=== PATIENT | male | born 1945 | race Caucasian/White ===

== ENCOUNTER 2024-05-01 11:23 | Observation (INO) ==
[2024-05-01 12:34] LABS: BASOPHILS % (AUTO) 0.3 % (0.2-1.0); HEMATOCRIT 43.2 % (42.0-54.0); HEMOGLOBIN 14.9 g/dL (13.5-18.0); LYMPHOCYTES # (AUTO) 0.8 X10^3/uL (1.3-2.9); LYMPHOCYTES % (AUTO) 9.2 % (21.0-51.0); MEAN CORPUSCULAR HEMOGLOBIN 32.3 pg (27.0-34.0); MEAN CORPUSCULAR HGB CONC 34.4 g/dL (33.0-35.0); MEAN CORPUSCULAR VOLUME 93.9 fL (80.0-100.0); MEAN PLATELET VOLUME 8.8 fL (7.4-11.0); MONOCYTES # (AUTO) 0.4 x10^3/uL (0.3-0.8); MONOCYTES % (AUTO) 4.9 % (0.0-13.0); NEUTROPHILS # (AUTO) 7.7 x10^3/uL (2.2-4.8); NEUTROPHILS % (AUTO) 85.6 % (42.0-75.0); PLATELET COUNT 134 X10^3/uL (150.0-450.0); RED CELL DISTRIBUTION WIDTH 13.5 % (11.6-16.5)
[2024-05-01] MEDS: VALIUM INJ IVP ONE (12:35)
[2024-05-01] MEDS: NS 1,000 ML IV 1,000 ML IV ONE (12:36)
[2024-05-01 12:46] LABS: ALANINE AMINOTRANSFERASE 19 Units/L (12-78); ALBUMIN 3.2 g/dL (3.4-5.0); ALKALINE PHOSPHATASE 47 Units/L (46-116); ASPARTATE AMINO TRANSFERASE 22 Units/L (15-37); BLOOD UREA NITROGEN 29 mg/dL (7-18); CALCIUM 8.8 mg/dL (8.5-10.1); CARBON DIOXIDE 29.7 mmol/L (21-32); CHLORIDE 103 mmol/L (98-107); COR CA(FOR HYPOALB) 9.4 mg/dL (8.5-10.1); COR NA(FOR HYPERGLY) 141 mmol/L (136-145); CREATININE 1.08 mg/dL (0.70-1.30); GLUCOSE 131 mg/dL (65-99); LIPASE 22 Units/L (16-77); POTASSIUM 4.1 mmol/L (3.5-5.1); SODIUM 140 mmol/L (136-145); TOTAL PROTEIN 6.7 g/dL (6.4-8.2); eGFR NON BLACK RACES > 60 (>60)
--- NOTE | 2024-05-01 13:13 | EKG ---
Test Reason : dizziness, bradycardia Blood Pressure : */* mmHG Vent. Rate : 46 BPM Atrial Rate : 46 BPM P-R Int : 172 ms QRS Dur : 94 ms QT Int : 424 ms P-R-T Axes : 61 1 58 degrees QTc Int : 371 ms Sinus bradycardia Otherwise normal ECG No previous ECGs available Confirmed by Alejandro Britt MD ([id number]) on 05/01/2024 1:32:22 PM Referred By: Confirmed By: Alejandro Britt MD
--- NOTE | 2024-05-01 16:43 | DR.GENAD ---
HPI Time Seen Time Seen by Provider: 05/01/24 12:03 PCP Primary Care Physician: Jose Vidales Complaint/Symptoms Chief Complaint Doctors Comments: 78 yo M, hx of HTN, Hypothyroidism, hx mitral valve replacement, no other cardiac hx, c/o dizziness the past 2d. Pt seen here yest, diagnosed with vertigo, sent home with meclizine and phenergan, comes back to ER for symptoms worsening. c/o assoc vomiting at home. Denies other complaints. Chief Complaint:: Pt states that he was seen yesterday for same complaint of dizziness/vergtio and vomiting. Pts states that every time he takes the by mouth phenergan the patient vomits so it doesnt have time to work. Self Treatment fo Chief Complaint: phenergan with no relief COVID-19 Coronavirus risk:travel/contact w/high risk person: No Has patient experienced Coronavirus symptoms: No Source History Provided: Patient and Significant Other Mode of Arrival Mode of Arrival: Wheelchair Timing Onset of Chief Complaint: 04/30/24 PMH PMH Past Medical History: Yes Past Medical History: Dyslipidemia, Hypertension and Hypothyroidism Past Surgical History: Yes Surgical History: Cholecystectomy and Ortho Surgery Past Surgical History Comment: Mitral Valve Replacement Family History History of Family Medical Conditions: Yes Family Medical History: Cancer and Hypertension Social History Do you use any recreational Drugs:: No Travel Risk Coronavirus risk:travel/contact w/high risk person: No Has patient experienced Coronavirus symptoms: No Infectious screening In the last 2 months have you had wt loss of >10#?: NO Have you had fever, night sweats or hemotysis?: No Have you traveled outside the country in the last 6 months?: No Isolation: Standard ROS Review of Systems Gastrointestinal/Abdominal: Vomiting Neurological: Dizziness All Other Systems: Reviewed and Negative PE Vital Signs Vitals: Vital Signs Temperature 98.3 F Pulse Rate 44 Pulse Rate 67 Pulse Rate 45 Pulse Rate 45 Pulse Rate 45 Pulse Rate 49 Pulse Rate 46 Pulse Rate 49 Pulse Rate 44 Pulse Rate 46 Pulse Rate 47 Pulse Rate 44 Pulse Rate 44 Pulse Rate 44 Pulse Rate 46 Pulse Rate 45 Pulse Rate 80 Pulse Rate 85 Pulse Rate 75 Pulse Rate 85 Pulse Rate 49 Pulse Rate 63 Pulse Rate 62 Respiratory Rate 16 Respiratory Rate 35 Respiratory Rate 22 Respiratory Rate 22 Respiratory Rate 28 Respiratory Rate 13 Respiratory Rate 14 Respiratory Rate 29 Respiratory Rate 19 Respiratory Rate 17 Respiratory Rate 21 Respiratory Rate 15 Respiratory Rate 20 Respiratory Rate 10 Respiratory Rate 15 Respiratory Rate 18 Respiratory Rate 13 Respiratory Rate 12 Respiratory Rate 25 Respiratory Rate 11 Respiratory Rate 11 Respiratory Rate 11 Respiratory Rate 18 Blood Pressure 154/70 Blood Pressure 150/67 Blood Pressure 150/67 Blood Pressure 150/67 Blood Pressure 138/62 Blood Pressure 179/78 Blood Pressure 172/71 Blood Pressure 172/72 Blood Pressure 172/72 Blood Pressure 172/72 Blood Pressure 172/72 Blood Pressure 172/72 Blood Pressure 180/73 Blood Pressure 154/69 Blood Pressure 135/64 O2 Sat by Pulse Oximetry 100 O2 Sat by Pulse Oximetry 95 O2 Sat by Pulse Oximetry 99 O2 Sat by Pulse Oximetry 99 O2 Sat by Pulse Oximetry 99 O2 Sat by Pulse Oximetry 99 O2 Sat by Pulse Oximetry 100 O2 Sat by Pulse Oximetry 100 O2 Sat by Pulse Oximetry 99 O2 Sat by Pulse Oximetry 99 O2 Sat by Pulse Oximetry 98 O2 Sat by Pulse Oximetry 98 O2 Sat by Pulse Oximetry 98 O2 Sat by Pulse Oximetry 99 O2 Sat by Pulse Oximetry 99 O2 Sat by Pulse Oximetry 100 O2 Sat by Pulse Oximetry 100 O2 Sat by Pulse Oximetry 100 O2 Sat by Pulse Oximetry 99 O2 Sat by Pulse Oximetry 100 O2 Sat by Pulse Oximetry 98 O2 Sat by Pulse Oximetry 98 O2 Sat by Pulse Oximetry 96 General Limitations: No Limitations General Appearance: Alert and In No Apparent Distress Head Head Exam: Normal Inspection Eyes Eye exam: Normal Appearance ENT ENT Exam: Normal Exam External Ear Exam: Normal External Inspection TM/Canal Exam: Bilateral: Normal Nose Exam: Normal Nose Exam Mouth Exam: Normal Inspection Throat Exam: Normal Inspection Neck Neck Exam: Normal Inspection Chest Chest Inspection: Normal Inspection Respiratory Respiratory Exam: Normal Lung Sounds Bilat Respiratory Exam: Bilateral: Clear to Auscultation Cardiovascular Cardiovascular Exam: Regular Rate and Normal Rhythm Abdominal Exam Abdominal Exam: Normal Inspection, Normal Bowel Sounds and Soft Extremities Extremities Exam: Normal Inspection Back Back Exam: Normal Inspection Neurologic Neurological Exam: Alert and Oriented X3 Psychiatric Psychiatric Exam: Normal Affect and Normal Mood Skin Skin Exam: Warm, Dry, Intact and Normal Color ROR Labs Reviewed 05/01/24 12:25 05/01/24 12:25 Laboratory: WBC 9.0 X10^3/uL (3.6-10.0) 05/01/24 12:25 RBC 4.60 X10^6/uL (4.7-6.0) L 05/01/24 12:25 Hgb 14.9 g/dL (13.5-18.0) 05/01/24 12:25 Hct 43.2 % (42.0-54.0) 05/01/24 12: MCV 93.9 fL (80.0-100.0) 05/01/24 12: MCH 32.3 pg (27.0-34.0) 05/01/24 12: MCHC 34.4 g/dL (33.0-35.0) 05/01/24 12: RDW 13.5 % (11.6-16.5) 05/01/24: Plt Count 134 X10^3/uL (150.0-450.0) L 05/01/24: MPV 8.8 fL (7.4-11.0) 05/01/24: Neut % (Auto) 85.6 % (42.0-75.0) H 05/01/24: Lymph % (Auto) 9.2 % (21.0-51.0) L 05/01/24 12: [place] % (Auto) 4.9 % (0.0-13.0) 05/01/24: Eos % (Auto) 0.0 % (0.9-2.9) L 05/01/24: Baso % (Auto) 0.3 % (0.2-1.0) 05/01/24: Neut # (Auto) 7.7 x10^3/uL (2.2-4.8) H 05/01/24: Lymph # (Auto) 0.8 X10^3/uL (1.3-2.9) L 05/01/24: [place] # (Auto) 0.4 x10^3/uL (0.3-0.8) 05/01/24: Eos # (Auto) 0.0 x10^3/uL (0.0-0.2) 05/01/24 12: Baso # (Auto) 0.0 X10^3/uL (0.0-0.1) 05/01/24 12: Absolute Nucleated RBC 0.0 /100WBC 05/01/24 12:25 Sodium 140 mmol/L (136-145) 05/01/24 12:25 Corrected Sodium 141 mmol/L (136-145) 05/01/24 12:25 Potassium 4.1 mmol/L (3.5-5.1) 05/01/24 12:25 Chloride 103 mmol/L (98-107) 05/01/24 12:25 Carbon Dioxide 29.7 mmol/L (21-32) 05/01/24 12:25 BUN 29 mg/dL (7-18) H 05/01/24 12:25 Creatinine 1.08 mg/dL (0.70-1.30) 05/01/24 12:25 Est GFR (MDRD) Af Amer > 60 (>60) 05/01/24 12:25 Est GFR (MDRD) Non-Af > 60 (>60) 05/01/24 12:25 Glucose 131 mg/dL (65-99) H 05/01/24 12:25 Calcium 8.8 mg/dL (8.5-10.1) 05/01/24 12:25 Corrected Calcium 9.4 mg/dL (8.5-10.1) 05/01/24 12:25 Total Bilirubin 0.50 mg/dL (0.2-1.0) 05/01/24 12:25 AST 22 Units/L (15-37) 05/01/24 12:25 ALT 19 Units/L (12-78) 05/01/24 12:25 Alkaline Phosphatase 47 Units/L (46-116) 05/01/24 12:25 Troponin I High Sens 9.7 ng/L (4.0-60.0) 05/01/24 12:25 Total Protein 6.7 g/dL (6.4-8.2) 05/01/24 12:25 Albumin 3.2 g/dL (3.4-5.0) L 05/01/24 12:25 Globulin 3.5 g/dL (2.5-4.5) 05/01/24 12:25 Albumin/Globulin Ratio 0.9 Ratio (1.1-2.1) L 05/01/24 12:25 Lipase 22 Units/L (16-77) 05/01/24 12:25 Opioid Opioid Risk Tool Age (Joshua box if 16-45): No History of Preadolescent Sexual Abuse: No Total: 0 Total Score Risk Category: Low Risk Copyright: Bentley ADAME predicting aberrant behaviors Discharge Plan Diagnosis Discharge Problem: Dizziness, Bradycardia Discharge Plan Patient Disposition: 09 ADMITTED INPATIENT Condition: Stable Prescriptions: No Action aspirin 81 MG tablet,delayed release (DR/EC) 81 mg PO DAILY losartan 50 mg tablet 50 mg PO BID tamsulosin 0.4 mg capsule 0.4 mg PO QPM levothyroxine 50 mcg tablet 50 mcg PO QAM finasteride 5 mg tablet 5 mg PO QPM rosuvastatin 10 mg tablet 10 mg PO QPM promethazine 25 mg tablet 25 mg PO Q6H PRNQty: 30 0RF triamcinolone acetonide 0.1 % cream 1 applic TOPICAL BID PRN Health Concerns: Post Hospitalization: new medications and changes needed to prevent readmission or further decline. Pt educated and given instructions on all concerns. Plan of Treatment: Continue with present treatment and follow up plan. Pt is to keep follow up appointment as instructed and take medications as ordered. Orders to Discharge Patient Discharge Orders: Transfer (Routine); Ordered 05/01/24 Ordered By: Earl Umana Follow ups/Referrals Follow ups/Referrals: Jose Vidales [Primary Care Provider] - 3 days Instructions Stand Alone Forms: Find Help Web Site, Post Hospital Follow Up Care ADDITIONAL NOTES Additional Notes Additional Notes: Pt admitted to Dr Saldivar at 1640PM
[2024-05-01 18:07] VITALS: BMI 22.8
[2024-05-01] MEDS ORDERED: MILK OF MAGNESIA PO PRN (18:22)
--- NOTE | 2024-05-01 18:23 | EKG ---
Test Reason : Bradycardia Blood Pressure : */* mmHG Vent. Rate : 67 BPM Atrial Rate : 67 BPM P-R Int : 188 ms QRS Dur : 80 ms QT Int : 432 ms P-R-T Axes : 58 15 55 degrees QTc Int : 456 ms Sinus rhythm with blocked premature atrial complexes with occasional premature ventricular complexes Cannot rule out Anterior infarct , age undetermined Abnormal ECG When compared with ECG of 01-MAY-2024 13:02, premature ventricular complexes are now present premature atrial complexes are now present QT has lengthened Confirmed by Alejandro Britt MD ([id number]) on 05/02/2024 7:41:27 AM Referred By: Confirmed By: Alejandro Britt MD
[2024-05-01 18:30] LABS: CREATINE KINASE < 7 Units/L (39-308)
[2024-05-01] MEDS: NS 1,000 ML IV 1,000 ML IV SCH (18:44)
[2024-05-01] MEDS ORDERED: ZOFRAN INJ 4 MG VIAL IVP PRN (18:44)
[2024-05-01] MEDS: COLACE CAP 100 MG PO SCH (20:36)
--- NOTE | 2024-05-01 23:51 | EKG ---
Test Reason : Bradycardia Blood Pressure : */* mmHG Vent. Rate : 44 BPM Atrial Rate : 44 BPM P-R Int : 174 ms QRS Dur : 84 ms QT Int : 410 ms P-R-T Axes : 67 19 56 degrees QTc Int : 350 ms Marked sinus bradycardia Possible Anterior infarct (cited on or before 01-MAY-2024) Abnormal ECG When compared with ECG of 01-MAY-2024 18:02, (Unconfirmed) premature ventricular complexes are no longer present premature atrial complexes are no longer present Vent. rate has decreased BY 23 BPM QT has shortened Confirmed by Alejandro Britt MD ([id number]) on 05/02/2024 7:41:14 AM Referred By: Confirmed By: Alejandro Britt MD
[2024-05-02 05:14] LABS: BASOPHILS % (AUTO) 0.3 % (0.2-1.0); EOSINOPHILS % (AUTO) 0.1 % (0.9-2.9); HEMOGLOBIN 14.7 g/dL (13.5-18.0); LYMPHOCYTES # (AUTO) 1.3 X10^3/uL (1.3-2.9); LYMPHOCYTES % (AUTO) 14.2 % (21.0-51.0); MEAN CORPUSCULAR HEMOGLOBIN 32.3 pg (27.0-34.0); MEAN CORPUSCULAR HGB CONC 34.2 g/dL (33.0-35.0); MEAN CORPUSCULAR VOLUME 94.4 fL (80.0-100.0); MEAN PLATELET VOLUME 9.1 fL (7.4-11.0); MONOCYTES # (AUTO) 0.8 x10^3/uL (0.3-0.8); MONOCYTES % (AUTO) 8.3 % (0.0-13.0); NEUTROPHILS # (AUTO) 7.2 x10^3/uL (2.2-4.8); NEUTROPHILS % (AUTO) 77.1 % (42.0-75.0); PLATELET COUNT 119 X10^3/uL (150.0-450.0); RED BLOOD COUNT 4.55 X10^6/uL (4.7-6.0); RED CELL DISTRIBUTION WIDTH 13.6 % (11.6-16.5); WHITE BLOOD COUNT 9.3 X10^3/uL (3.6-10.0)
[2024-05-02 05:27] LABS: INR 1.18 (0.8-1.3)
[2024-05-02 05:35] LABS: ALANINE AMINOTRANSFERASE 21 Units/L (12-78); ALBUMIN 2.9 g/dL (3.4-5.0); ALKALINE PHOSPHATASE 42 Units/L (46-116); ASPARTATE AMINO TRANSFERASE 25 Units/L (15-37); BLOOD UREA NITROGEN 24 mg/dL (7-18); CALCIUM 8.7 mg/dL (8.5-10.1); CARBON DIOXIDE 30.2 mmol/L (21-32); CHLORIDE 106 mmol/L (98-107); CHOL/HDL RATIO 2.5 (0.0-5.0); CHOLESTEROL 119 mg/dL (0-200); COR CA(FOR HYPOALB) 9.6 mg/dL (8.5-10.1); CREATININE 1.11 mg/dL (0.70-1.30); GLUCOSE 99 mg/dL (65-99); HDL CHOLESTEROL 48 mg/dL (40-60); MAGNESIUM 1.8 mg/dL (2.0-2.9); POTASSIUM 4.1 mmol/L (3.5-5.1); SODIUM 140 mmol/L (136-145); TOTAL PROTEIN 6.2 g/dL (6.4-8.2); TRIGLYCERIDES 97 mg/dL (0-150); eGFR NON BLACK RACES > 60 (>60)
[2024-05-02] MEDS ORDERED: CONSULT PHARMACY - POTASSIUM & MAGNESIUM XX SCH (06:00)
--- NOTE | 2024-05-02 06:26 | EKG ---
Test Reason : Bradycardia Blood Pressure : */* mmHG Vent. Rate : 54 BPM Atrial Rate : 54 BPM P-R Int : 180 ms QRS Dur : 82 ms QT Int : 434 ms P-R-T Axes : 59 7 51 degrees QTc Int : 411 ms Sinus bradycardia with occasional premature ventricular complexes Possible Anterior infarct (cited on or before 01-MAY-2024) Abnormal ECG When compared with ECG of 01-MAY-2024 23:33, (Unconfirmed) premature ventricular complexes are now present QT has lengthened Confirmed by Alejandro Britt MD ([id number]) on 05/02/2024 7:39:36 AM Referred By: Confirmed By: Alejandro Britt MD
[2024-05-02] MEDS: D5W 250 ML IV 250 ML IV ONE (07:17)
[2024-05-02] MEDS: MAG-OX TAB PO SCH (08:58)
--- NOTE | 2024-05-02 08:58 | DR.CONSULT ---
CONSULT Consultation for Day of: Date: 05/02/24 Chief Complaint Chief Complaint: dizzy/N/V Allergies Allergies Allergy/AdvReac Type Severity Reaction Status Date / Time meloxicam Allergy Verified 04/30/24 12:26 History of Present Illness History of Present Illness: 78 yo male- mild cad by cath last year- s/p MVR 2010-[facility] out of [place]- developed dizziness/n/v last week- saw Javi- given meclizine for vertigo-thursday : no better came to Er, CT negative- felt still vertigo- thursday: no better/admitted- symptoma are slowly improving- states dizzy/world spinning also peripheral vision gone- cardio consulted for bradycardia I suspect around times of n/v and suspect vagal mediated- hr now 70s Past Medical History Past Medical History: Dyslipidemia, Hypertension and Hypothyroidism Past Surgical History Surgical History: CABG/Valve Surgery, Cholecystectomy and Tonsillectomy Family History Family Medical History: IN and Hypertension Social History Type of Tobacco Use: None Alcohol Use: None Drug Use: None Medications Home Medications: meloxicam Allergy (Verified 04/30/24 12:26) CONTINUE taking the following medications triamcinolone acetonide 0.1 % topical cream 1 applic topical BID PRN 05/01/24 [History] Physical Exam Vital Signs: Vital Signs Temperature 97.9 F Temperature 97.7 F Temperature 97.7 F Pulse Rate [Right Radial] 53 Pulse Rate [Right Radial] 54 Pulse Rate [Right Radial] 54 Respiratory Rate 20 Respiratory Rate 20 Respiratory Rate 20 Blood Pressure [Left Arm] 149/70 Blood Pressure [Left Arm] 162/69 Blood Pressure [Left Arm] 162/69 O2 Sat by Pulse Oximetry 96 O2 Sat by Pulse Oximetry 97 O2 Sat by Pulse Oximetry 97 alert ox3 voice difficulties at time but states dates back after heart surgery- no bruits clear lungs rrr no edema- eyes dont move left/right- ok up and down- states peripheral vision gone CT: small vessel disease labs all ok Plan (1) Nausea & vomiting: Status: Acute Narrative Support Text: suspect related to dizziness (2) Dizziness: Status: Acute Narrative Support Text: suspect stroke to occiptal area affecting eye/peripheral vision causing dizziness Plan: MRI/neuro eval (3) Bradycardia: Status: Acute Narrative Support Text: suspect vagal mediated from n/v/d Plan: cont tele
--- NOTE | 2024-05-02 11:03 | DR.H&P ---
H&P History & Physical for Day of: H&P Date: 05/02/24 Chief Complaint Chief Complaint: dizziness, N/V History of Present Illness History of Present Illness: Mr Fair is a 78y/o male with a PMH of mitral valve replacement, HTN, HLD, Hypothyroidism, RLS and old CVA? presented with dizziness, N/V. His symptoms started Thu and he was seen at his cardiology appointment, was told it was vertigo and given meclizine. He was seen at his PCP the next day and was also told his symptoms are suggestive of vertigo and was given a steroid shot. He continued to have worsening dizziness when standing, unsteady gait and vision changes. He also had continued N/V. He was seen in the ER on Thu, labs and work up done. CT-brain was negative. He was given Phenergan IM and told to continue taking meclizine. His symptoms worsened and he was brought to the ER on Thursday. He was noted to have bradycardia HR in the 40s. He was started on hydration and cardio was consulted. His baseline HR is between 50-60. He reports feeling slightly better. His symptoms are worse when he stands up. He has not had any vomiting overnight. Dr Britt did see the patient and recommended further neuro work up to r/u stroke. Patient has normal motor strength in both upper and lower extremities. He does report blurry vision and worsening peripheral vision. He is not able to track objects side to side. He does have a hx of slurred speech which seems to be slightly worse as per his . Denies any trouble with swallowing. Labs/imaging reviewed: -WBC 9.3 Hgb 14.7 Plt 119 K 4.1 BUN/Cr 01/04.11 Mag 1.8 -CT-brain (04/30/24): no acute changes Plan: Continue telemetry, neuro checks. Will order MRI-brain and MRA neck to assess further and r/u any CVA. Fall precautions. Resume home medications. Replace electrolytes as per protocol. Continue gentle hydration. Anti-emetics prn. Appreciate cardio recommendations, monitor HR. Monitor AM labs/imaging. Time spent for clinical assessment, reviewing labs/imaging, physical exam, decision making and documentation greater than 45 mins. Past Medical History Past Medical History: Dyslipidemia, Hypertension and Hypothyroidism Past Surgical History Surgical History: CABG/Valve Surgery, Cholecystectomy and Tonsillectomy Family History Family Medical History: [place] and Hypertension Social History Type of Tobacco Use: None Alcohol Use: None Drug Use: None Medications Home Medications: Home Medications Medication Instructions Recorded Confirmed Type aspirin 81 mg tablet,delayed 81 mg PO DAILY 03/17/14 05/01/24 History release finasteride 5 mg tablet 5 mg PO QPM 04/30/24 05/01/24 History levothyroxine 50 mcg tablet 50 mcg PO QAM 04/30/24 05/01/24 History losartan 50 mg tablet 50 mg PO BID 04/30/24 05/01/24 History rosuvastatin 10 mg tablet 10 mg PO QPM 04/30/24 05/01/24 History tamsulosin 0.4 mg capsule 0.4 mg PO QPM 04/30/24 05/01/24 History triamcinolone acetonide 0.1 % 1 applic topical BID PRN 05/01/24 05/01/24 History topical cream Allergies Allergies Allergy/AdvReac Type Severity Reaction Status Date / Time meloxicam Allergy Verified 04/30/24 12:26 Labs 05/02/24 04:48 05/02/24 04:48 Labs: Laboratory WBC 9.3 X10^3/uL (3.6-10.0) 05/02/24 04:48 RBC 4.55 X10^6/uL (4.7-6.0) L 05/02/24 04:48 Hgb 14.7 g/dL (13.5-18.0) 05/02/24 04:48 Hct 43.0 % (42.0-54.0) 05/02/24 04:48 MCV 94.4 fL (80.0-100.0) 05/02/24 04:48 MCH 32.3 pg (27.0-34.0) 05/02/24 04:48 MCHC 34.2 g/dL (33.0-35.0) 05/02/24 04:48 RDW 13.6 % (11.6-16.5) 05/02/24 04:48 Plt Count 119 X10^3/uL (150.0-450.0) L 05/02/24 04:48 MPV 9.1 fL (7.4-11.0) 05/02/24 04:48 Neut % (Auto) 77.1 % (42.0-75.0) H 05/02/24 04:48 Lymph % (Auto) 14.2 % (21.0-51.0) L 05/02/24 04:48 [place] % (Auto) 8.3 % (0.0-13.0) 05/02/24 04:48 Eos % (Auto) 0.1 % (0.9-2.9) L 05/02/24 04:48 Baso % (Auto) 0.3 % (0.2-1.0) 05/02/24 04:48 Neut # (Auto) 7.2 x10^3/uL (2.2-4.8) H 05/02/24 04:48 Lymph # (Auto) 1.3 X10^3/uL (1.3-2.9) 05/02/24 04:48 [place] # (Auto) 0.8 x10^3/uL (0.3-0.8) 05/02/24 04:48 Eos # (Auto) 0.0 x10^3/uL (0.0-0.2) 05/02/24 04:48 Baso # (Auto) 0.0 X10^3/uL (0.0-0.1) 05/02/24 04:48 Absolute Nucleated RBC 0.0 /100WBC 05/02/24 04:48 PT 14.7 SECONDS (11.8-14.3) 05/02/24 04:48 INR Target Range - 05/02/24 04:48 INR 1.18 (0.8-1.3) 05/02/24 04:48 APTT 30.2 SECONDS (22.9-36.5) 05/02/24 04:48 PTT Comment - 05/02/24 04:48 Sodium 140 mmol/L (136-145) 05/02/24 04:48 Corrected Sodium TNP 05/02/24 04:48 Potassium 4.1 mmol/L (3.5-5.1) 05/02/24 04:48 Chloride 106 mmol/L (98-107) 05/02/24 04:48 Carbon Dioxide 30.2 mmol/L (21-32) 05/02/24 04:48 BUN 24 mg/dL (7-18) H 05/02/24 04:48 Creatinine 1.11 mg/dL (0.70-1.30) 05/02/24 04:48 Est GFR (MDRD) Af Amer > 60 (>60) 05/02/24 04:48 Est GFR (MDRD) Non-Af > 60 (>60) 05/02/24 04:48 Glucose 99 mg/dL (65-99) 05/02/24 04:48 Calcium 8.7 mg/dL (8.5-10.1) 05/02/24 04:48 Corrected Calcium 9.6 mg/dL (8.5-10.1) 05/02/24 04:48 Magnesium 1.8 mg/dL (2.0-2.9) L 05/02/24 04:48 Total Bilirubin 0.70 mg/dL (0.2-1.0) 05/02/24 04:48 AST 25 Units/L (15-37) 05/02/24 04:48 ALT 21 Units/L (12-78) 05/02/24 04:48 Alkaline Phosphatase 42 Units/L (46-116) L 05/02/24 04:48 Creatine Kinase < 7 Units/L (39-308) L 05/01/24 18:05 Troponin I High Sens 10.3 ng/L (4.0-60.0) 05/02/24 04:48 Troponin I High Sens Cancelled 05/02/24 04:48 Total Protein 6.2 g/dL (6.4-8.2) L 05/02/24 04:48 Albumin 2.9 g/dL (3.4-5.0) L 05/02/24 04:48 Globulin 3.3 g/dL (2.5-4.5) 05/02/24 04:48 Albumin/Globulin Ratio 0.9 Ratio (1.1-2.1) L 05/02/24 04:48 Triglycerides 97 mg/dL (0-150) 05/02/24 04:48 Cholesterol 119 mg/dL (0-200) 05/02/24 04:48 LDL Cholesterol, Calc 52 mg/dL (0-100) 05/02/24 04:48 HDL Cholesterol 48 mg/dL (40-60) 05/02/24 04:48 Cholesterol/HDL Ratio 2.5 (0.0-5.0) 05/02/24 04:48 Lipase 22 Units/L (16-77) 05/01/24 12:25 TSH 3rd Generation 2.221 uIU/mL (0.358-3.74) 05/02/24 04:48 Review of Systems Constitutional: Weakness Eyes: Vision Change ENT: No Symptoms Reported Respiratory: No Symptoms Reported Cardiovascular: No Symptoms Reported Gastrointestinal: Nausea and Vomiting Genitourinary: No Symptoms Reported Musculoskeletal: No Symptoms Reported Skin: No Symptoms Reported Neurological: Incoordination and Other (dizziness) Physical Exam Vital Signs: Vital Signs Temperature 97.9 F Temperature 97.7 F Temperature 97.7 F Pulse Rate [Right Radial] 53 Pulse Rate [Right Radial] 54 Pulse Rate [Right Radial] 54 Respiratory Rate 20 Respiratory Rate 20 Respiratory Rate 20 Blood Pressure [Left Arm] 149/70 Blood Pressure [Left Arm] 162/69 Blood Pressure [Left Arm] 162/69 O2 Sat by Pulse Oximetry 96 O2 Sat by Pulse Oximetry 97 O2 Sat by Pulse Oximetry 97 Oriented: Normal Eyes: Blurred Vision and Other (not able to track objects ) Respiratory: Clear Throughout Cardiovascular: Normal Auscultation: Bowel Sounds: Normal Palpation: Normal Tenderness: Normal Skin: Normal Musculoskeletal: Normal Psychiatric: Normal Mood Description: Calm Affect: Normal Speech Pattern: Clear and Appropriate Assessment/Plan (1) Nausea & vomiting: Qualifiers: Vomiting type: unspecified Qualified Code(s): R11.2 - Nausea with vomiting, unspecified Status: Acute (2) Dizziness: Status: Acute (3) Bradycardia: Status: Acute (4) Vision changes: Status: Acute (5) HTN (hypertension): Qualifiers: Hypertension type: primary hypertension Qualified Code(s): I10 - Essential (primary) hypertension Status: Chronic (6) HLD (hyperlipidemia): Qualifiers: Hyperlipidemia type: mixed hyperlipidemia Qualified Code(s): E78.2 - Mixed hyperlipidemia Status: Chronic (7) Mitral valve disorder: Status: Chronic Review H&P Reviewed: Yes Patient was examined?: Yes
[2024-05-02] MEDS: ASPIRIN EC 81 MG PO SCH (11:05)
[2024-05-02] MEDS: NS 1,000 ML IV 1,000 ML with MAGNESIUM SULFATE 50% INJ VIAL 1 G IV SCH (11:06)
[2024-05-02] MEDS: COZAAR PO SCH (11:06)
[2024-05-02] MEDS: SYNTHROID 50 mcg TAB PO SCH (11:06)
[2024-05-02] MEDS ORDERED: LOVENOX INJ 40 MG SYR SC SCH (13:00)
[2024-05-02] MEDS: FLOMAX PO SCH (20:25)
[2024-05-02] MEDS: CRESTOR TAB 10 MG PO SCH (20:25)
[2024-05-02] MEDS: PROSCAR PO SCH (20:25)
--- NOTE | 2024-05-02 21:39 | MRI ---
EXAM:BRAIN W/O CONHISTORY:unsteady gait, dizziness;COMPARISON:04/30/2024.TECHNIQUE: r sequences and imaging planes.FINDINGS:There is no restricted diffusion to suggest acute ischemia or infarction. There is prominence of the ventricles and sulci. There is T2 hyperintensity in the periventricular and subcortical white matter compatible with mild small vessel ischemic disease. There is no intracranial hemorrhage. There is mass proved is no mass effect or midline shift. There are flow voids in appropriate locations. There is no extra-axial mass or hemorrhage. Mastoid air cells and middle ear cavities are clear. There is mucosal thickening in the right maxillary sinus. The paranasal sinuses are otherwise clear. The orbits are remarkable.IMPRESSION:1. Negative for ischemia or infarct..2. Mild atrophy and small vessel ischemic disease.THIS IS AN ELECTRONICALLY VERIFIED FINAL REPORT05/02/2024 9:35 PM - Electronically signed by Jet Angel MD
[2024-05-03 06:14] LABS: BASOPHILS % (AUTO) 0.3 % (0.2-1.0); EOSINOPHILS # (AUTO) 0.1 x10^3/uL (0.0-0.2); EOSINOPHILS % (AUTO) 1.3 % (0.9-2.9); HEMATOCRIT 41.6 % (42.0-54.0); HEMOGLOBIN 14.1 g/dL (13.5-18.0); LYMPHOCYTES # (AUTO) 1.3 X10^3/uL (1.3-2.9); MEAN CORPUSCULAR HEMOGLOBIN 32.2 pg (27.0-34.0); MEAN CORPUSCULAR HGB CONC 33.8 g/dL (33.0-35.0); MEAN CORPUSCULAR VOLUME 95.1 fL (80.0-100.0); MEAN PLATELET VOLUME 9.1 fL (7.4-11.0); MONOCYTES # (AUTO) 0.7 x10^3/uL (0.3-0.8); MONOCYTES % (AUTO) 9.7 % (0.0-13.0); NEUTROPHILS % (AUTO) 70.7 % (42.0-75.0); PLATELET COUNT 126 X10^3/uL (150.0-450.0); RED BLOOD COUNT 4.37 X10^6/uL (4.7-6.0); RED CELL DISTRIBUTION WIDTH 13.3 % (11.6-16.5); WHITE BLOOD COUNT 7.1 X10^3/uL (3.6-10.0)
[2024-05-03 06:35] LABS: ALANINE AMINOTRANSFERASE 22 Units/L (12-78); ALBUMIN 2.6 g/dL (3.4-5.0); ALKALINE PHOSPHATASE 41 Units/L (46-116); ASPARTATE AMINO TRANSFERASE 26 Units/L (15-37); BLOOD UREA NITROGEN 20 mg/dL (7-18); CARBON DIOXIDE 26.9 mmol/L (21-32); CHLORIDE 108 mmol/L (98-107); COR CA(FOR HYPOALB) 9.1 mg/dL (8.5-10.1); CREATININE 0.98 mg/dL (0.70-1.30); GLUCOSE 106 mg/dL (65-99); MAGNESIUM 2.1 mg/dL (2.0-2.9); SODIUM 140 mmol/L (136-145); TOTAL PROTEIN 5.7 g/dL (6.4-8.2); eGFR NON BLACK RACES > 60 (>60)
--- NOTE | 2024-05-03 08:29 | NOTE.SOAP ---
Soap Note Note for Day of Date of Exam: 05/03/24 Subjective Data Subjective Data: symptoms minimally improved. Objective Data Objective Data: p 50-60- no sign bradycardia mri/head ct: no acute still cant move eye left to right but ok up/down- peripheral vision poor Assessment Assessment: dizziness with abnormal eye movement/altered peripheral vision- no stroke per mri/ct Plan Plan: neuro/optho help?
--- NOTE | 2024-05-03 09:10 | MRI ---
EXAM: MRA NECK WITHOUT CONTRAST HISTORY: carotid stenosis, dizziness; . COMPARISON: MRI brain 05/02/2024, 04/30/2024. TECHNIQUE: Axial [id number] magnetic resonance angiography of the neck vasculature was performed without int ravenous contrast. 3-D multiplanar reformatted maximum intensity projections were post processed. FINDINGS: Please note the aortic arch is not included in the field of view on this examination. There is prese rved flow related enhancement of the common carotid arteries, internal/external carotid arteries, and vertebral arteries bilaterally. There is moderate plaque in the right carotid bifurcation with fabiana mated 50% stenosis of the right ICA origin. There is mild plaque in the left carotid bifurcation, wi th less than 10% estimated ICA stenosis. The vertebral arteries are codominant, patent, and unremark able. On the source data set, there is abnormal signal in the brainstem, just anterior to the 4th ventricle near the obex. A small hemorrhage at this location is not excluded. IMPRESSION: 1. Included portions of the brain demonstrate a 7 mm signal abnormality in the brainstem, just anteri or to the 4th ventricle, which could represent a small hemorrhage. Its location at the obex could ex plain the patient's symptoms of nausea/vomiting. Consider follow-up MRI brain with and without contr ast with high-resolution thin section imaging through the 4th ventricle for additional characterizati on. 2. MRA of the neck demonstrates moderate plaque in the right carotid bifurcation with estimated 50% s tenosis of the right ICA origin. 3. Mild plaque in the left carotid bifurcation with less than 10% estimated left ICA stenosis. 4. Patent vertebral arteries with normal direction of flow. 5. Please note the aortic arch is not included in the field of view on this examination. THIS IS AN ELECTRONICALLY VERIFIED FINAL REPORT 05/03/2024 9:07 AM - Electronically signed by Jeff Goddard MD
--- NOTE | 2024-05-03 10:06 | PCM.PROG ---
Progress Note Progress Note for Day of Date of Exam: 05/03/24 Subjective Subjective: Patient seen at bedside, no acute events overnight. He continues to feel the same. He is still very unsteady when standing up and feels dizzy. He has not had anymore N/V. He is tolerating PO intake. His vision is about the same. Denies any headache. MRI-brain no acute changes noted. Labs/imaging reviewed: -WBC 7.1 Hgb 14.1 Plt 126 K 4.0 BUN/Cr 20/0.98 -MRI-brain reviewed, no acute changes. -MRA neck: Included portions of the brain demonstrate a 7 mm signal abnormality in the brainstem, just anterior to the 4th ventricle, which could represent a small hemorrhage. Its location at the obex could explain the patient's symptoms of nausea/vomiting. Plan: Continue telemetry, neuro checks. Consult tele neurology. Patient was also seen by Dr Britt due to concern for bradycardia initially, HR has been in the 60s. Replace electrolytes prn. Hold asa. Continue home medications. Fall precautions. SCDs. Monitor AM labs/imaging. Past Medical Family Social History Allergies: Allergies meloxicam Allergy (Verified 04/30/24 12:26) Vital Signs and I&O's Vital Signs: Vital Signs Temperature 98.8 F Pulse Rate [Right Radial] 62 Respiratory Rate 19 Blood Pressure [Right Arm] 145/74 O2 Sat by Pulse Oximetry 95 Intake and Output: Intake & Output 04/30/24 05/01/24 05/02/24 05/03/24 23:59 23:59 23:59 23:59 Intake Total 356 / 356 1562 / 1562 1064 / 1064 Output Total 300 / 300 Balance 56 / 56 1562 / 1562 1064 / 1064 Physical Exam Oriented: Normal Eyes: Blurred Vision and Other (not able to track objects ) Nose: Normal Throat: Normal Respiratory: Normal Cardiovascular: Normal Auscultation: Bowel Sounds: Normal Palpation: Normal Tenderness: Normal Skin: Normal Musculoskeletal: Normal Psychiatric: Normal Mood Description: Calm Affect: Normal Speech Pattern: Clear and Appropriate Laboratory and Diagnostics 05/03/24 05:44 05/03/24 05:44 Labs: Laboratory WBC 7.1 X10^3/uL (3.6-10.0) 05/03/24 05:44 RBC 4.37 X10^6/uL (4.7-6.0) L 05/03/24 05:44 Hgb 14.1 g/dL (13.5-18.0) 05/03/24 05:44 Hct 41.6 % (42.0-54.0) L 05/03/24 05:44 MCV 95.1 fL (80.0-100.0) 05/03/24 05:44 MCH 32.2 pg (27.0-34.0) 05/03/24 05:44 MCHC 33.8 g/dL (33.0-35.0) 05/03/24 05:44 RDW 13.3 % (11.6-16.5) 05/03/24 05:44 Plt Count 126 X10^3/uL (150.0-450.0) L 05/03/24 05:44 MPV 9.1 fL (7.4-11.0) 05/03/24 05:44 Neut % (Auto) 70.7 % (42.0-75.0) 05/03/24 05:44 Lymph % (Auto) 18.0 % (21.0-51.0) L 05/03/24 05:44 Daggett % (Auto) 9.7 % (0.0-13.0) 05/03/24 05:44 Eos % (Auto) 1.3 % (0.9-2.9) 05/03/24 05:44 Baso % (Auto) 0.3 % (0.2-1.0) 05/03/24 05:44 Neut # (Auto) 5.0 x10^3/uL (2.2-4.8) H 05/03/24 05:44 Lymph # (Auto) 1.3 X10^3/uL (1.3-2.9) 05/03/24 05:44 Daggett # (Auto) 0.7 x10^3/uL (0.3-0.8) 05/03/24 05:44 Eos # (Auto) 0.1 x10^3/uL (0.0-0.2) 05/03/24 05:44 Baso # (Auto) 0.0 X10^3/uL (0.0-0.1) 05/03/24 05:44 Absolute Nucleated RBC 0.0 /100WBC 05/03/24 05:44 PT 14.7 SECONDS (11.8-14.3) 05/02/24 04:48 INR Target Range - 05/02/24 04:48 INR 1.18 (0.8-1.3) 05/02/24 04:48 APTT 30.2 SECONDS (22.9-36.5) 05/02/24 04:48 PTT Comment - 05/02/24 04:48 Sodium 140 mmol/L (136-145) 05/03/24 05:44 Corrected Sodium TNP 05/03/24 05:44 Potassium 4.0 mmol/L (3.5-5.1) 05/03/24 05:44 Chloride 108 mmol/L (98-107) H 05/03/24 05:44 Carbon Dioxide 26.9 mmol/L (21-32) 05/03/24 05:44 BUN 20 mg/dL (7-18) H 05/03/24 05:44 Creatinine 0.98 mg/dL (0.70-1.30) 05/03/24 05:44 Est GFR (MDRD) Af Amer > 60 (>60) 05/03/24 05:44 Est GFR (MDRD) Non-Af > 60 (>60) 05/03/24 05:44 Glucose 106 mg/dL (65-99) H 05/03/24 05:44 Calcium 8.0 mg/dL (8.5-10.1) L 05/03/24 05:44 Corrected Calcium 9.1 mg/dL (8.5-10.1) 05/03/24 05:44 Magnesium 2.1 mg/dL (2.0-2.9) 05/03/24 05:44 Total Bilirubin 0.70 mg/dL (0.2-1.0) 05/03/24 05:44 AST 26 Units/L (15-37) 05/03/24 05:44 ALT 22 Units/L (12-78) 05/03/24 05:44 Alkaline Phosphatase 41 Units/L (46-116) L 05/03/24 05:44 Creatine Kinase Cancelled 05/02/24 17:44 Troponin I High Sens 10.3 ng/L (4.0-60.0) 05/02/24 04:48 Troponin I High Sens Cancelled 05/02/24 04:48 Total Protein 5.7 g/dL (6.4-8.2) L 05/03/24 05:44 Albumin 2.6 g/dL (3.4-5.0) L 05/03/24 05:44 Globulin 3.1 g/dL (2.5-4.5) 05/03/24 05:44 Albumin/Globulin Ratio 0.8 Ratio (1.1-2.1) L 05/03/24 05:44 Triglycerides 97 mg/dL (0-150) 05/02/24 04:48 Cholesterol 119 mg/dL (0-200) 05/02/24 04:48 LDL Cholesterol, Calc 52 mg/dL (0-100) 05/02/24 04:48 HDL Cholesterol 48 mg/dL (40-60) 05/02/24 04:48 Cholesterol/HDL Ratio 2.5 (0.0-5.0) 05/02/24 04:48 Lipase 22 Units/L (16-77) 05/01/24 12:25 TSH 3rd Generation 2.221 uIU/mL (0.358-3.74) 05/02/24 04:48 Plan (1) Nausea & vomiting: Status: Acute Qualifiers: Vomiting type: unspecified Qualified Code(s): R11.2 - Nausea with vomiting, unspecified (2) Dizziness: Status: Acute (3) Vision changes: Status: Acute (4) HTN (hypertension): Status: Chronic Qualifiers: Hypertension type: primary hypertension Qualified Code(s): I10 - Essential (primary) hypertension (5) HLD (hyperlipidemia): Status: Chronic Qualifiers: Hyperlipidemia type: mixed hyperlipidemia Qualified Code(s): E78.2 - Mixed hyperlipidemia (6) Mitral valve disorder: Status: Chronic
--- NOTE | 2024-05-03 12:39 | TELESTROKE ---
[facility] Consult Date of Consult Date of Exam: 05/03/24 Time of Arrival to the ED: 03:00 Allergies Allergies Allergy/AdvReac Type Severity Reaction Status Date / Time meloxicam Allergy Verified 04/30/24 12:26 Vital Signs Vital Signs: Temp Pulse Pulse Resp BP BP BP 05/03/24 08:00 98 F 54 L 17 143/67 05/03/24 09:59 05/03/24 04:00 98.8 F 62 19 145/74 05/02/24 23:49 98.4 F 61 20 130/65 05/02/24 19:00 05/02/24 20:00 98.2 F 60 19 167/74 05/02/24 16:00 97.3 F L 64 20 131/60 05/02/24 12:00 97.2 F L 50 L 20 164/77 05/02/24 09:59 05/02/24 07:49 97.9 F 53 L 20 149/70 05/02/24 04:00 97.7 F 54 L 20 162/69 05/02/24 04:00 97.7 F 54 L 20 162/69 05/01/24 23:47 98.0 F 66 20 136/68 05/01/24 20:00 98.2 F 52 L 18 144/63 05/01/24 19:00 05/01/24 18:25 98.1 F 46 L 18 156/69 05/01/24 18:08 05/01/24 16:30 154/70 05/01/24 16:30 44 L 16 05/01/24 16:15 67 35 H 05/01/24 16:00 150/67 05/01/24 16:00 150/67 05/01/24 16:00 150/67 05/01/24 16:00 45 L 22 05/01/24 16:00 45 L 22 05/01/24 15:45 45 L 28 H 05/01/24 15:31 49 L 13 05/01/24 15:31 138/62 05/01/24 15:30 46 L 14 05/01/24 15:15 49 L 29 H 05/01/24 15:01 179/78 05/01/24 15:01 44 L 19 05/01/24 15:00 46 L 17 05/01/24 14:45 47 L 21 05/01/24 14:31 172/71 05/01/24 14:31 44 L 15 05/01/24 14:30 44 L 20 05/01/24 14:15 44 L 10 L 05/01/24 14:01 172/72 05/01/24 14:01 172/72 05/01/24 14:01 172/72 05/01/24 14:01 172/72 05/01/24 14:01 172/72 05/01/24 14:00 46 L 15 05/01/24 13:45 45 L 18 05/01/24 13:31 180/73 05/01/24 13:31 80 13 05/01/24 13:30 85 12 05/01/24 13:15 75 25 H 05/01/24 13:00 154/69 05/01/24 13:00 85 11 L 05/01/24 12:45 49 L 11 L 05/01/24 12:44 63 11 L 05/01/24 11:24 98.3 F 62 18 135/64 04/30/24 14:06 161/74 Pulse Ox O2 Del Method O2 Flow Rate 05/03/24 08:00 94 L Room Air 05/03/24 09:59 Room Air 05/03/24 04:00 95 Room Air 05/02/24 23:49 94 L Room Air 05/02/24 19:00 Room Air 05/02/24 20:00 97 Room Air 05/02/24 16:00 96 Room Air 05/02/24 12:00 96 Room Air 05/02/24 09:59 Room Air 05/02/24 07:49 96 Room Air 05/02/24 04:00 97 Room Air 05/02/24 04:00 97 Room Air 05/01/24 23:47 94 L Room Air 05/01/24 20:00 97 Room Air 05/01/24 19:00 Room Air 05/01/24 18:25 97 Room Air 05/01/24 18:08 Room Air 97 05/01/24 16:30 05/01/24 16:30 100 05/01/24 16:15 95 05/01/24 16:00 05/01/24 16:00 05/01/24 16:00 05/01/24 16:00 99 05/01/24 16:00 99 05/01/24 15:45 99 05/01/24 15:31 99 05/01/24 15:31 05/01/24 15:30 100 05/01/24 15:15 100 05/01/24 15:01 05/01/24 15:01 99 05/01/24 15:00 99 05/01/24 14:45 98 05/01/24 14:31 05/01/24 14:31 98 05/01/24 14:30 98 05/01/24 14:15 99 05/01/24 14:01 05/01/24 14:01 05/01/24 14:01 05/01/24 14:01 05/01/24 14:01 05/01/24 14:00 99 05/01/24 13:45 100 05/01/24 13:31 05/01/24 13:31 100 05/01/24 13:30 100 05/01/24 13:15 99 05/01/24 13:00 05/01/24 13:00 100 05/01/24 12:45 98 05/01/24 12:44 98 05/01/24 11:24 96 Room Air 04/30/24 14:06 History of Present Illness History of Present Illness: [facility] Consult Services Stat Consult Patient Name:Geovany Fair Date of :1945 Identification Number: Date of Service:05/03/2024 11:18:37 Diagnosis:H81.12 - Benign paroxysmal vertigo, left ear. Impression 74 year old male with a history of HTN and HLD admitted with symptoms of vertigo that has been affecting his mobility and difficulty focusing his eyes since Thursday. MRA head showed a 7 mm signal abnormality in the brainstem, just anterior to the 4th ventricle, which could represent a small hemorrhage. Neurology was consulted due to MRA head findings. Recommend MRI brain with and without contrast with high resolution thin section imaging through the 4th ventricle. Hold aspirin up until small hemorrhage is ruled out with MRI brain with and without contrast with high resolution thin section imaging through the 4th ventricle. Normotensive BP goal. Imaging/Work up MRA head: 1. Included portions of the brain demonstrate a 7 mm signal abnormality in the brainstem, just anterior to the 4th ventricle, which could represent a small hemorrhage. Its location at the obex could explain the patient's symptoms of nausea/vomiting. Consider follow-up MRI brain with and without contrast with high-resolution thin section imaging through the 4th ventricle for additional characterization. 2. MRA of the neck demonstrates moderate plaque in the right carotid bifurcation with estimated 50% stenosis of the right ICA origin. MRI brain without contrast: 1. Negative for ischemia or infarct.. 2. Mild atrophy and small vessel ischemic disease. Recommendations: Our recommendations are outlined below. Metrics: Dispatch Time: 05/03/2024 11:18:37 Callback Response Time: 05/03/2024 11:20:18 ED Physician not notified of diagnostic impression and management plan because Unable to reach provider. Chief Complaint: Vertigo and difficulty walking. History of Present Illness:Patient is a 78 year old Male. 74 year old male with a history of HTN and HLD admitted with symptoms of vertigo that has been affecting his mobility and difficulty focusing his eyes since Thursday. Patient's states that the patient has been having difficulty time walking. Otherwise no other complaints of focal symptoms. MRA head showed a 7 mm signal abnormality in the brainstem, just anterior to the 4th ventricle, which could represent a small hemorrhage. Neurology was consulted due to MRA head findings. Past Medical History: Hypertension There is no history of Diabetes Mellitus There is no history of Coronary Artery Disease There is no history of Stroke Medications: No Anticoagulant use No Antiplatelet use Reviewed EMR for current medications Allergies: Reviewed Social History: Drug Use: No Family History: There is no family history of premature cerebrovascular disease pertinent to this consultation ROS : 14 Points Review of Systems was performed and was negative except mentioned in HPI. Past Surgical History: There Is No Surgical History Contributory To Todays Visit Examination: BP(145/74),Pulse(62), Neuro Exam: Alert and oriented times three. CN 2-12 intact, motor no drift in b/l upper and lower extremities. Slurred speech (baseline deficits) This consult was conducted in real time using interactive audio and video technology. Patient was informed of the technology being used for this visit and agreed to proceed. Patient located in hospital and provider located at home/office setting. Patient is being evaluated for possible acute neurologic impairment and high probability of imminent or life - threatening deterioration.I spent total of 35 minutes providing care to this patient, including time for face to face visit via telemedicine, review of medical records, imaging studies and discussion of findings with providers, the patient and / or family. Dr Blaine Wilder [facility] For Inpatient follow-up with [facility] physician please call [facility] at . As we are not an outpatient service for any post hospital discharge needs please contact the hospital for assistance. If you have any questions for the [facility] physicians or need to reconsult for clinical or diagnostic changes please contact us via [facility] at . Medical Decision Making 05/03/24 05:44 05/03/24 05:44 Labs: Laboratory Results - last 24 hr 05/02/24 05/03/24 17:44 05:44 WBC 7.1 RBC 4.37 L Hgb 14.1 Hct 41.6 L MCV 95.1 MCH 32.2 MCHC 33.8 RDW 13.3 Plt Count 126 L MPV 9.1 Neut % (Auto) 70.7 Lymph % (Auto) 18.0 L [place] % (Auto) 9.7 Eos % (Auto) 1.3 Baso % (Auto) 0.3 Neut # (Auto) 5.0 H Lymph # (Auto) 1.3 [place] # (Auto) 0.7 Eos # (Auto) 0.1 Baso # (Auto) 0.0 Absolute Nucleated RBC 0.0 Sodium 140 Corrected Sodium TNP Potassium 4.0 Chloride 108 H Carbon Dioxide 26.9 BUN 20 H Creatinine 0.98 Est GFR (MDRD) Af Amer > 60 Est GFR (MDRD) Non-Af > 60 Glucose 106 H Calcium 8.0 L Corrected Calcium 9.1 Magnesium 2.1 Total Bilirubin 0.70 AST 26 ALT 22 Alkaline Phosphatase 41 L Creatine Kinase Cancelled Total Protein 5.7 L Albumin 2.6 L Globulin 3.1 Albumin/Globulin Ratio 0.8 L
[2024-05-03] MEDS: NS 1,000 ML IV 1,000 ML IV SCH (16:23)
--- NOTE | 2024-05-03 21:32 | MRI ---
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 There is no definite evidence for acute hemorrhage. 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 No evidence of underlying mass or metastatic lesion. No evidence of edema or mass effect on the adjacent 4th ventricle.IMPRESSION:1. 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 These findings are likely chronic, as there is no evidence of acute hemorrhage or edema.THIS IS AN ELECTRONICALLY VERIFIED FINAL REPORT05/03/2024 9:29 PM - Electronically signed by Jeff Goddard MD
[2024-05-04 05:40] LABS: BASOPHILS % (AUTO) 0.5 % (0.2-1.0); EOSINOPHILS # (AUTO) 0.3 x10^3/uL (0.0-0.2); EOSINOPHILS % (AUTO) 3.8 % (0.9-2.9); HEMATOCRIT 41.6 % (42.0-54.0); HEMOGLOBIN 14.3 g/dL (13.5-18.0); LYMPHOCYTES # (AUTO) 1.3 X10^3/uL (1.3-2.9); LYMPHOCYTES % (AUTO) 18.7 % (21.0-51.0); MEAN CORPUSCULAR HEMOGLOBIN 32.4 pg (27.0-34.0); MEAN CORPUSCULAR HGB CONC 34.4 g/dL (33.0-35.0); MEAN CORPUSCULAR VOLUME 94.2 fL (80.0-100.0); MEAN PLATELET VOLUME 9.1 fL (7.4-11.0); MONOCYTES # (AUTO) 0.6 x10^3/uL (0.3-0.8); MONOCYTES % (AUTO) 8.3 % (0.0-13.0); NEUTROPHILS # (AUTO) 4.7 x10^3/uL (2.2-4.8); NEUTROPHILS % (AUTO) 68.7 % (42.0-75.0); PLATELET COUNT 120 X10^3/uL (150.0-450.0); RED BLOOD COUNT 4.42 X10^6/uL (4.7-6.0); RED CELL DISTRIBUTION WIDTH 13.1 % (11.6-16.5); WHITE BLOOD COUNT 6.8 X10^3/uL (3.6-10.0)
[2024-05-04 06:03] LABS: ALANINE AMINOTRANSFERASE 23 Units/L (12-78); ALBUMIN 2.7 g/dL (3.4-5.0); ALKALINE PHOSPHATASE 46 Units/L (46-116); ASPARTATE AMINO TRANSFERASE 20 Units/L (15-37); BLOOD UREA NITROGEN 18 mg/dL (7-18); CALCIUM 8.4 mg/dL (8.5-10.1); CARBON DIOXIDE 27.6 mmol/L (21-32); CHLORIDE 108 mmol/L (98-107); COR CA(FOR HYPOALB) 9.4 mg/dL (8.5-10.1); CREATININE 0.96 mg/dL (0.70-1.30); GLUCOSE 101 mg/dL (65-99); MAGNESIUM 1.9 mg/dL (2.0-2.9); SODIUM 140 mmol/L (136-145); TOTAL PROTEIN 5.9 g/dL (6.4-8.2); eGFR NON BLACK RACES > 60 (>60)
[2024-05-04 08:10] VITALS: RESP 18
[2024-05-04 14:10] VITALS: BP 137/66; PULSE 54; TEMP 98.6; O2SAT 96
--- NOTE | 2024-05-06 12:10 | W.DIS.FURT ---
Summary of Discharge Discharge Summary of Date Date of Exam: 05/04/24 Admission Date Date of Admission: 05/01/24 Admission Diagnosis Patient Problems (Updated 05/02/24 @ 11:03 by Hamida Mckee MD) Dizziness (Acute) R42 Bradycardia (Acute) R00.1 Hospital Course: Mr Fair is a 78y/o male with a PMH of mitral valve replacement, HTN, HLD, Hypothyroidism, RLS and old CVA? presented with dizziness, N/V. His symptoms started Thu and he was seen at his cardiology appointment, was told it was vertigo and given meclizine. He was seen at his PCP the next day and was also told his symptoms are suggestive of vertigo and was given a steroid shot. He continued to have worsening dizziness when standing, unsteady gait and vision changes. He also had continued N/V. He was seen in the ER on Thu, labs and work up done. CT-brain was negative. He was given Phenergan IM and told to continue taking meclizine. His symptoms worsened and he was brought to the ER on Thursday. He was noted to have bradycardia HR in the 40s. He was started on hydration and cardio was consulted. His baseline HR is between 50-60. He reports feeling slightly better. His symptoms are worse when he stands up. He has not had any vomiting overnight. Dr Britt did see the patient and recommended further neuro work up to r/u stroke. Patient has normal motor strength in both upper and lower extremities. He does report blurry vision and worsening peripheral vision. He is not able to track objects side to side. He does have a hx of slurred speech which seems to be slightly worse as per his . Denies any trouble with swallowing. His labs were monitored and electrolytes were replaced as needed. MRI without contrast did not show any acute abnormalities. MRA did notice hyperintensity that was suggestive of hemorrhage, MRI with contrast was recommended. Teleneurology was also consulted and recommended to do MRI with contrast and hold aspirin. Patient symptoms did not progress or worsen during this time. He was working with physical therapy and was able to ambulate with a walker. His dizziness and unsteady gait did improve a little bit. MRI with contrast showed chronic cavernous malformation but no acute hemorrhage or infarct. Neurology did not have any further recommendations except patient needs to follow-up with dye worker. Patient was stable for discharge home with home health services. He will follow-up with dye worker and neurology as scheduled. Vital Signs: Vital Signs (72 hours) 05/01/24 14:45 05/01/24 15:00 05/01/24 15:01 Temperature Pulse Rate 47 L 46 L 44 L Pulse Rate [Right Radial] Respiratory Rate 21 17 19 Blood Pressure Blood Pressure [Left Arm] Blood Pressure [Right Arm] O2 Sat by Pulse Oximetry 98 99 99 Oxygen Delivery Method Oxygen Flow Rate 05/01/24 15:01 05/01/24 15:15 05/01/24 15:30 Temperature Pulse Rate 49 L 46 L Pulse Rate [Right Radial] Respiratory Rate 29 H 14 Blood Pressure 179/78 Blood Pressure [Left Arm] Blood Pressure [Right Arm] O2 Sat by Pulse Oximetry 100 100 Oxygen Delivery Method Oxygen Flow Rate 05/01/24 15:31 05/01/24 15:31 05/01/24 15:45 Temperature Pulse Rate 49 L 45 L Pulse Rate [Right Radial] Respiratory Rate 13 28 H Blood Pressure 138/62 Blood Pressure [Left Arm] Blood Pressure [Right Arm] O2 Sat by Pulse Oximetry 99 99 Oxygen Delivery Method Oxygen Flow Rate 05/01/24 16:00 05/01/24 16:00 05/01/24 16:00 Temperature Pulse Rate 45 L 45 L Pulse Rate [Right Radial] Respiratory Rate 22 22 Blood Pressure 150/67 Blood Pressure [Left Arm] Blood Pressure [Right Arm] O2 Sat by Pulse Oximetry 99 99 Oxygen Delivery Method Oxygen Flow Rate 05/01/24 16:00 05/01/24 16:00 05/01/24 16:15 Temperature Pulse Rate 67 Pulse Rate [Right Radial] Respiratory Rate 35 H Blood Pressure 150/67 150/67 Blood Pressure [Left Arm] Blood Pressure [Right Arm] O2 Sat by Pulse Oximetry 95 Oxygen Delivery Method Oxygen Flow Rate 05/01/24 16:30 05/01/24 16:30 05/01/24 18:08 Temperature Pulse Rate 44 L Pulse Rate [Right Radial] Respiratory Rate 16 Blood Pressure 154/70 Blood Pressure [Left Arm] Blood Pressure [Right Arm] O2 Sat by Pulse Oximetry 100 Oxygen Delivery Method Room Air Oxygen Flow Rate 97 05/01/24 18:25 05/01/24 19:00 05/01/24 20:00 Temperature 98.1 F 98.2 F Pulse Rate Pulse Rate [Right Radial] 46 L 52 L Respiratory Rate 18 18 Blood Pressure Blood Pressure [Left Arm] 156/69 144/63 Blood Pressure [Right Arm] O2 Sat by Pulse Oximetry 97 97 Oxygen Delivery Method Room Air Room Air Room Air Oxygen Flow Rate 05/01/24 23:47 05/02/24 04:00 05/02/24 04:00 Temperature 98.0 F 97.7 F 97.7 F Pulse Rate Pulse Rate [Right Radial] 66 54 L 54 L Respiratory Rate 20 20 20 Blood Pressure Blood Pressure [Left Arm] 136/68 162/69 162/69 Blood Pressure [Right Arm] O2 Sat by Pulse Oximetry 94 L 97 97 Oxygen Delivery Method Room Air Room Air Room Air Oxygen Flow Rate 05/02/24 07:49 05/02/24 09:59 05/02/24 12:00 Temperature 97.9 F 97.2 F L Pulse Rate Pulse Rate [Right Radial] 53 L 50 L Respiratory Rate 20 20 Blood Pressure Blood Pressure [Left Arm] 149/70 164/77 Blood Pressure [Right Arm] O2 Sat by Pulse Oximetry 96 96 Oxygen Delivery Method Room Air Room Air Room Air Oxygen Flow Rate 05/02/24 16:00 05/02/24 20:00 05/02/24 19:00 Temperature 97.3 F L 98.2 F Pulse Rate Pulse Rate [Right Radial] 64 60 Respiratory Rate 20 19 Blood Pressure Blood Pressure [Left Arm] Blood Pressure [Right Arm] 131/60 167/74 O2 Sat by Pulse Oximetry 96 97 Oxygen Delivery Method Room Air Room Air Room Air Oxygen Flow Rate 05/02/24 23:49 05/03/24 04:00 05/03/24 09:59 Temperature 98.4 F 98.8 F Pulse Rate Pulse Rate [Right Radial] 61 62 Respiratory Rate 20 19 Blood Pressure Blood Pressure [Left Arm] Blood Pressure [Right Arm] 130/65 145/74 O2 Sat by Pulse Oximetry 94 L 95 Oxygen Delivery Method Room Air Room Air Room Air Oxygen Flow Rate 05/03/24 08:00 05/03/24 12:00 05/03/24 16:00 Temperature 98 F 97.8 F 98.1 F Pulse Rate Pulse Rate [Right Radial] 54 L 61 51 L Respiratory Rate 17 19 18 Blood Pressure Blood Pressure [Left Arm] Blood Pressure [Right Arm] 143/67 146/68 156/69 O2 Sat by Pulse Oximetry 94 L 98 97 Oxygen Delivery Method Room Air Room Air Room Air Oxygen Flow Rate 05/03/24 19:00 05/03/24 19:46 05/04/24 00:00 Temperature 97.7 F 98 F Pulse Rate Pulse Rate [Right Radial] 53 L 53 L Respiratory Rate 21 18 Blood Pressure Blood Pressure [Left Arm] Blood Pressure [Right Arm] 157/74 167/76 O2 Sat by Pulse Oximetry 95 96 Oxygen Delivery Method Room Air Room Air Room Air Oxygen Flow Rate 05/04/24 04:00 05/04/24 08:00 05/04/24 10:25 Temperature 98.3 F 98.7 F Pulse Rate Pulse Rate [Right Radial] 51 L 63 Respiratory Rate 20 18 Blood Pressure Blood Pressure [Left Arm] Blood Pressure [Right Arm] 140/69 135/65 O2 Sat by Pulse Oximetry 94 L 94 L Oxygen Delivery Method Room Air Room Air Room Air Oxygen Flow Rate 05/04/24 12:00 Temperature 98.6 F Pulse Rate Pulse Rate [Right Radial] 54 L Respiratory Rate 18 Blood Pressure Blood Pressure [Left Arm] Blood Pressure [Right Arm] 137/66 O2 Sat by Pulse Oximetry 96 Oxygen Delivery Method Room Air Oxygen Flow Rate Labs: Laboratory Last Values WBC 6.8 X10^3/uL (3.6-10.0) 05/04/24 05:00 RBC 4.42 X10^6/uL (4.7-6.0) L 05/04/24 05:00 Hgb 14.3 g/dL (13.5-18.0) 05/04/24 05:00 Hct 41.6 % (42.0-54.0) L 05/04/24 05:00 MCV 94.2 fL (80.0-100.0) 05/04/24 05:00 MCH 32.4 pg (27.0-34.0) 05/04/24 05:00 MCHC 34.4 g/dL (33.0-35.0) 05/04/24 05:00 RDW 13.1 % (11.6-16.5) 05/04/24 05:00 Plt Count 120 X10^3/uL (150.0-450.0) L 05/04/24 05:00 MPV 9.1 fL (7.4-11.0) 05/04/24 05:00 Neut % (Auto) 68.7 % (42.0-75.0) 05/04/24 05:00 Lymph % (Auto) 18.7 % (21.0-51.0) L 05/04/24 05:00 [place] % (Auto) 8.3 % (0.0-13.0) 05/04/24 05:00 Eos % (Auto) 3.8 % (0.9-2.9) H 05/04/24 05:00 Baso % (Auto) 0.5 % (0.2-1.0) 05/04/24 05:00 Neut # (Auto) 4.7 x10^3/uL (2.2-4.8) 05/04/24 05:00 Lymph # (Auto) 1.3 X10^3/uL (1.3-2.9) 05/04/24 05:00 [place] # (Auto) 0.6 x10^3/uL (0.3-0.8) 05/04/24 05:00 Eos # (Auto) 0.3 x10^3/uL (0.0-0.2) H 05/04/24 05:00 Baso # (Auto) 0.0 X10^3/uL (0.0-0.1) 05/04/24 05:00 Absolute Nucleated RBC 0.0 /100WBC 05/04/24 05:00 PT 14.7 SECONDS (11.8-14.3) 05/02/24 04:48 INR Target Range - 05/02/24 04:48 INR 1.18 (0.8-1.3) 05/02/24 04:48 APTT 30.2 SECONDS (22.9-36.5) 05/02/24 04:48 PTT Comment - 05/02/24 04:48 Sodium 140 mmol/L (136-145) 05/04/24 05:12 Corrected Sodium TNP 05/04/24 05:12 Potassium 4.0 mmol/L (3.5-5.1) 05/04/24 05:12 Chloride 108 mmol/L (98-107) H 05/04/24 05:12 Carbon Dioxide 27.6 mmol/L (21-32) 05/04/24 05:12 BUN 18 mg/dL (7-18) 05/04/24 05:12 Creatinine 0.96 mg/dL (0.70-1.30) 05/04/24 05:12 Est GFR (MDRD) Af Amer > 60 (>60) 05/04/24 05:12 Est GFR (MDRD) Non-Af > 60 (>60) 05/04/24 05:12 Glucose 101 mg/dL (65-99) H 05/04/24 05:12 Calcium 8.4 mg/dL (8.5-10.1) L 05/04/24 05:12 Corrected Calcium 9.4 mg/dL (8.5-10.1) 05/04/24 05:12 Magnesium 1.9 mg/dL (2.0-2.9) L 05/04/24 05:12 Total Bilirubin 0.70 mg/dL (0.2-1.0) 05/04/24 05:12 AST 20 Units/L (15-37) 05/04/24 05:12 ALT 23 Units/L (12-78) 05/04/24 05:12 Alkaline Phosphatase 46 Units/L (46-116) 05/04/24 05:12 Creatine Kinase Cancelled 05/02/24 17:44 Troponin I High Sens 10.3 ng/L (4.0-60.0) 05/02/24 04:48 Troponin I High Sens Cancelled 05/02/24 04:48 Total Protein 5.9 g/dL (6.4-8.2) L 05/04/24 05:12 Albumin 2.7 g/dL (3.4-5.0) L 05/04/24 05:12 Globulin 3.2 g/dL (2.5-4.5) 05/04/24 05:12 Albumin/Globulin Ratio 0.8 Ratio (1.1-2.1) L 05/04/24 05:12 Triglycerides 97 mg/dL (0-150) 05/02/24 04:48 Cholesterol 119 mg/dL (0-200) 05/02/24 04:48 LDL Cholesterol, Calc 52 mg/dL (0-100) 05/02/24 04:48 HDL Cholesterol 48 mg/dL (40-60) 05/02/24 04:48 Cholesterol/HDL Ratio 2.5 (0.0-5.0) 05/02/24 04:48 Lipase 22 Units/L (16-77) 05/01/24 12:25 TSH 3rd Generation 2.221 uIU/mL (0.358-3.74) 05/02/24 04:48 Reason For Visit: BRADYCARDIA DIZZINESS Discharge Diagnosis All Active Problems (Updated 05/02/24 @ 11:03 by Hamida Mckee MD) Mitral valve disorder (Chronic) HLD (hyperlipidemia) (Chronic) HTN (hypertension) (Chronic) Vision changes (Acute) Vertigo (Acute) Nausea & vomiting (Acute) Dizziness (Acute) Bradycardia (Acute) Plan of Treatment: Continue with present treatment and follow up plan. Pt is to keep follow up appointment as instructed and take medications as ordered. Discharge Medications Discharge Medications: meloxicam Allergy (Verified 04/30/24 12:26) CONTINUE taking the following medications triamcinolone acetonide 0.1 % topical cream 1 applic topical BID PRN 05/01/24 [History] Discharge Disposition Discharge Disposition: Home with home health Discharge Condition: Stable Discharge Plan Discharge Plan Hospital Course: Mr Fair is a 78y/o male with a PMH of mitral valve replacement, HTN, HLD, Hypothyroidism, RLS and old CVA? presented with dizziness, N/V. His symptoms started Thu and he was seen at his cardiology appointment, was told it was vertigo and given meclizine. He was seen at his PCP the next day and was also told his symptoms are suggestive of vertigo and was given a steroid shot. He continued to have worsening dizziness when standing, unsteady gait and vision changes. He also had continued N/V. He was seen in the ER on Thu, labs and work up done. CT-brain was negative. He was given Phenergan IM and told to continue taking meclizine. His symptoms worsened and he was brought to the ER on Thursday. He was noted to have bradycardia HR in the 40s. He was started on hydration and cardio was consulted. His baseline HR is between 50-60. He reports feeling slightly better. His symptoms are worse when he stands up. He has not had any vomiting overnight. Dr Britt did see the patient and recommended further neuro work up to r/u stroke. Patient has normal motor strength in both upper and lower extremities. He does report blurry vision and worsening peripheral vision. He is not able to track objects side to side. He does have a hx of slurred speech which seems to be slightly worse as per his . Denies any trouble with swallowing. His labs were monitored and electrolytes were replaced as needed. MRI without contrast did not show any acute abnormalities. MRA did notice hyperintensity that was suggestive of hemorrhage, MRI with contrast was recommended. Teleneurology was also consulted and recommended to do MRI with contrast and hold aspirin. Patient symptoms did not progress or worsen during this time. He was working with physical therapy and was able to ambulate with a walker. His dizziness and unsteady gait did improve a little bit. MRI with contrast showed chronic cavernous malformation but no acute hemorrhage or infarct. Neurology did not have any further recommendations except patient needs to follow-up with dye worker. Patient was stable for discharge home with home health services. He will follow-up with dye worker and neurology as scheduled. Patient Disposition: HOME HEALTH SERVICE Condition: Stable Health Concerns: Post Hospitalization: new medications and changes needed to prevent readmission or further decline. Pt educated and given instructions on all concerns. Care Plan Goals: Problem: Activity Intolerance Goal: Increased tolerance to activity Instructions: Follow provided instructions. Follow up with primary physician as directed. Contact primary care physician or report to the closest Emergency Room if condition worsens. Plan of Treatment: Continue with present treatment and follow up plan. Pt is to keep follow up appointment as instructed and take medications as ordered. Prescription drug monitoring program results: PDMP reviewed and no concerns identified Prescriptions: Continued aspirin 81 MG tablet,delayed release (DR/EC) 81 mg PO DAILY losartan 50 mg tablet 50 mg PO BID tamsulosin 0.4 mg capsule 0.4 mg PO QPM levothyroxine 50 mcg tablet 50 mcg PO QAM finasteride 5 mg tablet 5 mg PO QPM rosuvastatin 10 mg tablet 10 mg PO QPM promethazine 25 mg tablet 25 mg PO Q6H PRNQty: 30 0RF triamcinolone acetonide 0.1 % cream 1 applic TOPICAL BID PRN Follow ups/Referrals Follow ups/Referrals: [facility] [Other] [facility] [Other] (Office will call you with appointment) GIULIA RIVERA [Nurse Practitioner] - 05/11/24 9:40 am LIANET ORTIZ [REFERRING] - (Office will call with appointment.) Instructions Instructions: Bradycardia, Adult, Nausea and Vomiting, Adult, [id number], Dizziness, Visual Disturbances Stand Alone Forms: Find Help Web Site, [facility] Follow Up Care
== END 2024-05-04 15:30 | disposition home health service (06) ==
LOC: ER 11:23 → MED/SURG 11:23
PROVIDERS: ADMIT Obstetrics & Gynecology Obstetrics; ATTEND Internal Medicine
DX: R11.2 Nausea with vomiting, unspecified; H53.8 Other visual disturbances; E03.8 Other specified hypothyroidism; R26.89 Other abnormalities of gait and mobility; H81.12 Benign paroxysmal vertigo, left ear; R90.82 White matter disease, unspecified; E78.2 Mixed hyperlipidemia; I05.8 Other rheumatic mitral valve diseases; R00.1 Bradycardia, unspecified; E83.42 Hypomagnesemia; I10 Essential (primary) hypertension; Z66 Do not resuscitate; I69.828 Other speech and language deficits following other cerebrovascular disease; R90.89 Other abnormal findings on diagnostic imaging of central nervous system